=== PATIENT | female | born 1980 | race American Indian/Alaskan Native ===

== ENCOUNTER 2017-01-02 15:35 | Outpatient (CLI) | payer BC, OTHER | END 2017-01-02 15:36 | disposition home or self-care (01) | LOC: LABHHL 15:35 → LAB 15:35 | PROVIDERS: ATTEND Obstetrics & Gynecology | DX: O02.1 Missed abortion (principal); Z3A.00 Weeks of gestation of pregnancy not specified | CPT/HCPCS: 88305 ==